=== PATIENT | female | born 1980 | race Two or more races ===

== ENCOUNTER → 2022-05-13 | Outpatient (CLI) | payer OTHER ==
[2022-05-13 11:19] LABS: Follicle Stimulating Hormone 6.02 IU/L (SEE BELOW); Leuteinizing Hormone 2.1 IU/L
== END | disposition home or self-care (01) ==
LOC: LAB 09:52
PROVIDERS: ATTEND Obstetrics & Gynecology
DX: R10.2 Pelvic and perineal pain (principal)
CPT/HCPCS: 36415; 82670; 83001; 83002; 84403; 84443